=== PATIENT | male | born 1975 | race Two or more races ===

== ENCOUNTER 2025-02-12 13:23 | Emergency (ER) | payer OTHER ==
[~2025-02-12] VITALS: Ht 180.3 cm; Wt 111.9 kg
--- NOTE | 2025-02-12 14:05 | ED.PDOC ---
History of Present Illness HPI Comments 49 y/o M, with PMHx of HTN and DM presents to the ED for CC of med refill. Patient states, he has been out of his Metformin and blood pressure medication x1week, and has been experiencing high blood sugars as a result. Upon arrival to the ED, patient's BG read at 212. No other symptoms or modifying factors present at this time. Chief Complaint: Hyperglycemia Time Seen by MD: 14:00 Reviewed Notes: Nurses Notes, Medications, Allergies Allergies: Coded Allergies: NO KNOWN ALLERGIES (Unverified , 02/12/25) Home Meds Active Scripts Metformin Hydrochloride (Metformin Hcl) 500 Mg Tab, 1 TAB PO BID for 20 Days, #40 TAB 3 Refills Prov:BINA DERAS MD 02/12/25 Lisinopril (Lisinopril) 20 Mg Tab, 1 TAB PO DAILY for 15 Days, #15 TAB 5 Refills Prov:BINA DERAS MD 02/12/25 Information Source: Patient Mode of Arrival: Ambulatory Severity: Moderate Timing: Weeks Duration: Since onset Prehospital treatment: None Past Medical History PAST MEDICAL HISTORY: DM, HTN Surgical History: Denies all surgeries Family History Family History: Unknown Social History Smoker: Non-Smoker Alcohol: Denies ETOH Use Drugs: Denies Drug Use Lives In: Home Constitutional: denies: chills, diaphoresis, fatigue, fever, malaise, sweats, weakness, others EENTM: denies: blurred vision, double vision, ear bleeding, ear discharge, ear drainage, ear pain, ear ringing, eye pain, eye redness, hearing loss, mouth pain, mouth swelling, nasal discharge, nose bleeding, nose congestion, nose pain, photophobia, tearing, throat pain, throat swelling, voice changes, others Respiratory: denies: cough, hemoptysis, orthopnea, SOB at rest, shortness of breath, SOB with excertion, stridor, wheezing, others Cardiovascular: denies: chest pain, dizzy spells, diaphoresis, Dyspnea on exertion, edema, irregular heart beat, left arm pain, lightheadedness, palpitations, PND, syncope, others Gastrointestinal: denies: abdomen distended, abdominal pain, blood streaked bowels, constipated, diarrhea, dysphagia, difficulty swallowing, hematemesis, melena, nausea, poor appetite, poor fluid intake, rectal bleeding, rectal pain, vomiting, others Genitourinary: denies: burning, dysuria, flank pain, frequency, hematuria, incontinence, penile discharge, penile sore, pain, testicle pain, testicle swelling, urgency, others Neurological: denies: dizziness, fainting, headache, left sided numbness, left sided weakness, numbness, paresthesia, pre-existing deficit, right sided numbness, right sided weakness, seizure, speech problems, tingling, tremors, weakness, others Musculoskeletal: denies: back pain, gout, joint pain, joint swelling, muscle p ain, muscle stiffness, neck pain, others Integumetry: denies: bruises, change in color, change in hair/nails, dryness, laceration, lesions, lumps, rash, wounds, others Allergic/Immunocompromised: denies: Difficulty Healing, Frequent Infections, Hives, Itching, others Hematologic/Lymphatic: denies: anemia, blood clots, easy bleeding, easy bruising, swollen glands, others Endocrine: denies: excessive hunger, excessive sweating, excessive thirst, excessive urination, flushing, intolerance to cold, intolerance to heat, unexplained weight gain, unexplained weight loss, others Psychiatric: denies: anxiety, bipolar disorder, depression, hopeless, panic disorder, schizophrenia, sleepless, suicidal, others All Other Systems: Reviewed and Negative Physical Exam General Appearance: Moderate Distress HEENT: Normal ENT Inspection, Pharynx Normal, TMs Normal Neck: Full Range of Motion, Non-Tender, Normal, Normal Inspection Respiratory: Chest Non-Tender, Lungs Clear, No Accessory Muscle Use, No Respiratory Distress, Normal Breath Sounds Cardiovascular: No Edema, No JVD, No Murmur, No Gallop, Normal Peripheral Pulses, Regular Rate/Rhythm Breast Exam: Deferred Gastrointestinal: No Organomegaly, Non Tender, No Pulsatile Mass, Normal Bowel Sounds, Soft Genitalia: Deferred Pelvic: Deferred Rectal: Deferred Extremities: No calf tenderness, Normal capillary refill, Normal inspection, Normal range of motion, Non-tender, No pedal edema Musculoskeletal : Apperance: Normal Neurologic: Alert, soda dialyzer II-XII nml as Tested, No Motor Deficits, Normal Affect, Normal Mood, No Sensory Deficits Cerebellar Function: Normal Reflexes: Normal Skin: Dry, Normal Color, Warm Peripheral Pulses: 3+ Radial (R), 3+ Radial (L) Lymphatic: No Adenopathy Was a procedure done? Was a procedure done?: No Differential Dx Considerations may include: Hyperglycemia Hypertension X-Ray, Labs, Meds, VS Vital Signs Date Time Temp Pulse Resp B/P (MAP) Pulse Ox O2 Delivery O2 Flow Rate FiO2 02/12/25 14:49 98.1 87 18 137/68 (91) 95 98.1 02/12/25 14:49 87 18 95 Room Air 02/12/25 13:31 98.9 89 20 125/95 (105) 97 98.9 Lab Test 02/12/25 13:30 Range/Units POC Glucose 212 H 70-106 mg/dl Patient alert. Complaining of not having his medication. Blood sugar slightly elevated. Vitals stable. Denies any symptoms. Physical examination pristine. He states that he takes lisinopril metformin. Was given prescription of lisinopril metformin. Did explained to the patient that check his blood pressure prior to taking his medication. No leg swelling. No chest pain. No shortness a breath. Explained to the patient. Was told to follow up with his primary care physician. Was told to come back if there is any problem. Time of 1ST Reevaluation: 14:30 Reevaluation 1ST: Unchanged Patient Education/Counseling: Diagnosis, Treatment Family Education/Counseling: No Family Present Departure 1 Departure Time of Disposition: 15:04 Impression: Primary Impression: Uncontrolled diabetes mellitus Qualified Codes: E13.65 - Other specified diabetes mellitus with hyperglycemia Disposition: 01 HOME / SELF CARE / HOMELESS Condition: Good e-Prescriptions Nadolol (Nadolol) 40 Mg Tab 1 TAB PO DAILY for 20 Days, #20 TAB 5 Refills Prov: BINA DERAS MD 02/12/25 Metformin Hydrochloride (Metformin Hcl) 500 Mg Tab 1 TAB PO BID for 20 Days, #40 TAB 3 Refills Prov: BINA DERAS MD 02/12/25 Discharged With: Self Critical Care Note Critical Care Time?: No Stability Stability form required: No Heart Score Heart Score: Heart Score Response (Comments) Value History N/A 0 EKG N/A 0 Age N/A 0 Risk Factors N/A 0 Troponin N/A 0 Total 0 I personally scribed for BINA DERAS MD ([email or web address]) on 02/12/25 at 14:05. Electronically submitted by Brandi Corrales ([email or web address]). I personally scribed for BINA DERAS MD ([email or web address]) on 02/12/25 at 14:06. Electronically submitted by Brandi Corrales ([email or web address]). I personally scribed for BINA DERAS MD ([email or web address]) on 02/12/25 at 14:13. Electronically submitted by Brandi Corrales ([email or web address]). BINA DERAS MD February 12, 2025 14:05
[2025-02-12 14:49] VITALS: BP 137/68; PULSE 87; RESP 18; TEMP 98.1; O2SAT 95
[2025-02-12] MEDS ORDERED: METF-370 PO (15:05)
[2025-02-12] MEDS ORDERED: LISI20TA56 PO (15:05)
[2025-02-12] MEDS ORDERED: NADO40TA PO (15:14)
== END 2025-02-12 15:16 | disposition home or self-care (01) ==
LOC: ER 13:23
DX: E11.65 Type 2 diabetes mellitus with hyperglycemia (principal); I10 Essential (primary) hypertension; Z76.0 Encounter for issue of repeat prescription; Z79.84 Long term (current) use of oral hypoglycemic drugs; Z79.899 Other long term (current) drug therapy
CPT/HCPCS: 82947; 82962